=== PATIENT | female | born 1985 | race Caucasian/White ===

== ENCOUNTER 2025-03-04 09:45 | Emergency (ER) | payer MEDICAID, SELFPAY ==
--- NOTE | 2025-03-04 10:32 | XR_ITS ---
Examination: CT abdomen and pelvis without contrast. Coronal 3-D reconstructions. Sagittal 2-D reconstructions. Date and time of exam:March 04, 2025, 12:42 PM INDICATIONS: Right-sided flank pain radiating to lower back with nausea today CTDI: vol (mGy): 8.26 DLP: (mGycm): 418 Technique: Axial images of the abdomen have been obtained, 3 mm slice thickness Intravenous contrast material has not been administered. Low dose protocols were performed. One or more of the following dose reduction techniques were used; automated exposure control, adjustment of the mA and/or KV according to patient size, use of iterative reconstruction technique. Findings: No focal liver or splenic lesion No gallstones No pancreatic or adrenal mass No renal or ureteral calculi, no hydronephrosis Aorta normal size No bowel obstruction Normal appendix No diverticulitis No bladder mass or bladder calculi Anteverted uterus Intact osseous structures IMPRESSION: Hepatomegaly, 21 cm No renal or ureteral calculi, no hydronephrosis Normal appendix No bowel structure diverticulitis or free air. No bladder mass or bladder calculi
--- NOTE | 2025-03-04 10:35 | PD.EDRME ---
Rapid Medical Screening Exam RME Arrival date/time: 03/04/25 09:45 39-year-old female with no known medical history presents to the emergency room with a chief complaint of right-sided flank pain x 2 days I have greeted and performed a focused initial assessment of this patient. A comprehensive ED assessment and evaluation of the patient, analysis of all test results, and completion of the medical decision making process will be conducted by additional ED providers. Chief Complaint: Back Pain/Injury Time Seen by Provider: 03/04/25 10:24 Vital signs reviewed by provider: Yes
[2025-03-04 10:42] VITALS: BP 146/98; PULSE 80; RESP 18; TEMP 36.7; O2SAT 100
[2025-03-04 10:58] LABS: Basophils # (Auto) 0.0 Thou/mm3 (0.0-0.2); Basophils % (Auto) 1 % (0-2.5); Eosinophils # (Auto) 0.2 Thou/mm3 (0.0-0.5); Eosinophils % (Auto) 5 % (0-10); Hematocrit 32.6 % (36.0-46.0); Hemoglobin 9.4 g/dL (12.0-16.0); Immature Granulocytes Auto 0.01 Thou/mm3 (0.00-0.00); Lymphocytes # (Auto) 0.8 Thou/mm3 (1.0-4.8); Lymphocytes % (Auto) 19 % (10-50); Mean Corpuscular HGB Conc 28.8 g/dl (31.0-37.0); Mean Corpuscular Hemoglobin 20.8 pg (25.0-35.0); Mean Corpuscular Volume 72 fL (80-100); Monocytes # (Auto) 0.4 Thou/mm3 (0.0-0.8); Monocytes % (Auto) 9 % (0-12); Neutrophils # (Auto) 2.8 Thou/mm3 (1.8-7.7); Neutrophils % (Auto) 66 % (37-80); Nucleated Red Blood Cell # 0.00 Thou/mm3 (0.00-0.00); Nucleated Red Blood Cell % 0 /100 WBC (0); Platelet Count 266 Thou/mm3 (140-440); RDW Standard Deviation 49.0 fL (36.4-46.3); Red Blood Count 4.51 Miln/mm3 (4.00-5.20); White Blood Count 4.2 Thou/mm3 (3.6-11.0)
[2025-03-04 11:13] LABS: Collection Type, Urine Clean Catch
[2025-03-04 11:28] LABS: Alanine Aminotransferase 11 U/L (10-49); Albumin, Serum 4.7 gm/dL (3.5-5.0); Albumin/Globulin Ratio 2.0 (1.2-2.2); Alkaline Phosphatase 66 U/L (46-116); Anion Gap 10 (7-16); Aspartate Amino Transferase 25 U/L (0-34); BUN/Creatinine Ratio 10 Ratio (12-20); Bilirubin,Total 0.4 mg/dL (0.3-1.2); Blood Urea Nitrogen 8 mg/dL (9-23); Calcium 9.6 mg/dL (8.3-10.6); Calcium (Corrected) 9.6 mg/dL (8.5-10.1); Carbon Dioxide 27.5 mMol/L (20.0-31.0); Chloride 104 mMol/L (98-107); Creatinine (Component) 0.8 mg/dL (0.6-1.3); Globulin 2.4 gm/dL (2.3-3.5); Glucose 113 mg/dL (74-106); Lipase 35 U/L (12-53); Osmolality,Calculated 280 (275-295); Potassium 3.9 mMol/L (3.4-5.1); Sodium 141 mMol/L (136-145); Total Protein 7.1 gm/dL (5.7-8.2); eGFR > 60 See Note
[2025-03-04 11:57] LABS: Bilirubin,Urine Negative (Negative); Blood,Urine 3+ (Negative); Clarity,Urine Turbid (Clear/Hazy); Glucose, Urine Negative (Negative); Ketones,Urine Negative (Negative); Leukocyte Esterase,Urine Positive (Negative); Nitrite,Urine Negative (Negative); PH,Urine 6.5 (5.0-7.0); Protein,Urine Trace (Neg - Trace); RBC,Urine 5229 /hpf (0-3); Specific Gravity,Urine 1.008 (1.001-1.035); Squamous Epithelial Cell,Urine 6 /hpf (0-5); Urobilinogen,Urine Negative mg/dL (0.0-1.0); WBC,Urine 6 /hpf (0-5)
[2025-03-04 11:58] LABS: Color,Urine Lt-Red (Lt Yel-Yel)
[2025-03-04 11:59] LABS: HCG Qualitative,Urine Negative
--- NOTE | 2025-03-04 13:34 | EDNOTE_ITS ---
ED Abdominal Pain RME/HPI General Chief Complaint: Back Pain/Injury Stated complaint: BACK PAIN, 03/08 Time seen by provider: 03/04/25 10:24 Arrival date/time: 03/04/25 09:45 This is a case of 39-year-old female with no medical history came in in the emergency room due to bilateral flank pain radiating to the abdomen associated with nausea vomiting on and off for 2 days patient states that the pain is sharp radiating to the lower back denies any numbness weakness tingling sensation denies any incontinence to urine or stool denies fever or chills persistence of the symptoms this patient decided to sought consult here in the emergency room patient is on her menstrual period today Limitations: no limitations RME / HPI RME / HPI narrative: 03/04/25 09:45 39-year-old female with no known medical history presents to the emergency room with a chief complaint of right-sided flank pain x 2 days I have greeted and performed a focused initial assessment of this patient. A comprehensive ED assessment and evaluation of the patient, analysis of all test results, and completion of the medical decision making process will be conducted by additional ED providers. Related Data Previous Rx's ?Medication ?Instructions ?Recorded doxycycline hyclate 100 mg capsule 100 mg PO BID #14 c aps 02/16/19 hydrocodone 5 mg-acetaminophen 325 1 tab PO Q6H PRN pa in #14 tabs 02/16/19 mg tablet (Ashton) baclofen 10 mg tablet 10 mg PO BID PRN muscle spas m #10 03/04/25 tabs ferrous sulfate 325 mg (65 mg 325 mg PO BID #60 tabs 1 iron) tablet hydrocodone 5 mg-acetaminophen 325 1 tab PO Q6H PRN pa in #12 tabs 03/04/25 mg tablet nitrofurantoin 100 mg PO BID #20 caps 03/04 monohydrate/macrocrystals 100 mg capsule (Macrobid) ondansetron 4 mg disintegrating 4 mg PO Q8H #20 tabs 1 tablet Allergies Allergy/AdvReac Type Severity Reaction Status Date / Time amoxicillin Allergy Unknown Verified 03/04/25 09:48 Penicillins Allergy Unknown Verified 03/04/25 09:48 Review of Systems Review of Systems Systems Reviewed: All systems reviewed, normal except as documented Constitutional Constitutional: Reports system reviewed and no additional complaints, except as documented and Reports as per HPI Cardiovascular Cardiovascular: Reports system reviewed and no additional complaints, except as documented and Reports as per HPI Gastrointestinal Gastrointestinal: Reports system reviewed and no additional complaints, except as documented and Reports as per HPI Genitourinary Genitourinary: Reports system reviewed and no additional complaints, except as documented and Reports as per HPI Musculoskeletal Musculoskeletal: Reports system reviewed and no additional complaints, except as documented and Reports as per HPI Neurologic Neurologic: Reports system reviewed and no additional complaints, except as documented and Reports as per HPI Past Medical History Past Medical History NEUROLOGIC: Negative Neurological Disorders or Seizures CARDIAC: Negative Cardiac Disorders or Congestive Heart Failure RESPIRATORY: Negative Chronic Obstructive Pulmonary Disease (COPD) GASTROINTESTINAL: Positive Gastrointestinal Disorders (PAIN FROM THROAT TO EPIGASTRIC AREA WITH COUGHING UP BLACK SECRETIONS); Negative Hepatitis or Colorectal Cancer GENITOURINARY: Negative Genitourinary Disorders or Renal Disease REPRODUCTIVE: Positive Previous Pregnancies (X2); Negative Breast Cancer or Pelvic Inflammatory Disease MUSCULOSKELETAL: Negative Musculoskeletal Disorders, Bone Cancer or Carpal Tunnel Syndrome ENDOCRINE: Negative Endocrine Disorders, Diabetes Mellitus Type 1 or Diabetes Mellitus Type 2 HEMATOLOGIC: Negative Blood Disorders PSYCHO/SOCIAL: Positive Depression and Anxiety (NO MEDS FOR A YEAR) OTHER HISTORY: Negative Autoimmune Disease, Falls, Blood Transfusions, Blood Transfusion Reaction, Anesthesia Reactions, Organ Transplant, MRSA, Chicken Pox, Breast Cancer, Cervical Cancer, Colorectal Cancer, Lung Cancer or Ovarian Cancer Family History FAMILY HISTORY: Positive Family Cardiac Disorders (HTN-- MOTHER); Negative Family Psychiatric Problems, Family Respiratory Disorders, Family Gastrointestinal Problems, Family Cancer, Family Surgery or Family Anesthesia Reaction Surgical History SURGICAL: Negative Cardiac Surgery, Endocrine Surgery, Ear Surgery, Abdominal Surgery, Joint Replacement, Amputation, Open Reduction Internal Fixation, Arthroscopy, Brain Shunt, Tubal Ligation, Section or Organ Transplant Social History SMOKING STATUS: Former smoker ED Exam General Limitations: Present no limitations General appearance: Present alert, in no apparent distress and other (Patient is awake alert oriented not in distress nontoxic looking well-hydrated well- nourished) Head Head exam: Present atraumatic, normocephalic and normal inspection Eye Eye exam: Present normal appearance, PERRL and EOMI ENT ENT exam: Present normal exam, normal oropharynx and mucous membranes moist Neck Neck exam: Present normal inspection, full ROM and trachea midline; Absent tenderness, meningismus, lymphadenopathy or thyromegaly Chest Chest inspection: Present normal inspection and symmetric chest wall rise; Absent tenderness Respiratory Respiratory exam: Present normal lung sounds bilaterally; Absent respiratory distress, wheezes, stridor, accessory muscle use or prolonged expiratory phase Cardiovascular Cardiovascular exam: Present regular rate, normal rhythm and normal heart sounds; Absent bradycardia, tachycardia, irregular rhythm, systolic murmur, diastolic murmur or clicks Abdominal Exam Abdominal exam: Present soft, tenderness (Mild tenderness on both flank no CVA tenderness) and normal bowel sounds; Absent distention, guarding, rebound, rigidity, diminished bowel sounds, hypoactive bowel sounds, organomegaly, psoas sign, obturator sign, Groves's sign, Rovsing's sign, tenderness at McBurney's Point, ascites or mass Extremities Exam Extremities exam: Present normal inspection and full ROM Back Exam Back exam: Present normal inspection and full ROM Neurological Exam Neurological exam: Present alert, oriented X3, CN II-XII intact and normal gait; Absent motor sensory deficit Psychiatric Psychiatric exam: Present normal affect and normal mood Skin Skin exam: Present warm, dry, intact and normal color Course Quality Measures none Orders Category Date Time Status CT abdomen pelvis wo con Stat Exams 03/04/25 10:32 Completed CBC Stat Lab 03/04/25 10:44 Completed CMP [Comprehensive Metabolic Panel] Stat Lab 03/04/25 10:44 Completed HCG Qualitative,Urine Stat Lab 03/04/25 11:00 Completed Lipase Stat Lab 03/04/25 10:44 Completed UA [Urinalysis] Stat Lab 03/04/25 11:00 Completed Urine Culture Stat Lab 03/04/25 11:00 Received HYDROcodone*/APAP 5/325 [Ashton 5/325] Med 03/04/25 13:27 Discontinued 1 tab PO X1 ONE Ketorolac Inj [Toradol Inj] Med 03/04/25 13:27 Discontinued 30 mg IM X1 ONE Vital Signs Vital signs: Vital Signs Temperature 98.1 F 03/04/25 10:42 Pulse Rate 80 03/04/25 10:42 Respiratory Rate 18 03/04/25 10:42 Blood Pressure 146/98 H 03/04/25 10:42 Pulse Oximetry (%) 100 03/04/25 10:42 Oxygen Delivery Method Room Air 03/04/25 10:42 Oxygen saturation is 100% in room air Abdominal Pain MDM MDM Narrative MDM Narrative:: This is a case of 39-year-old female with no medical history came in in the emergency room due to bilateral flank pain radiating to the abdomen associated with nausea vomiting on and off for 2 days patient states that the pain is sharp radiating to the lower back denies any numbness weakness tingling sensation denies any incontinence to urine or stool denies fever or chills persistence of the symptoms this patient decided to sought consult here in the emergency room p theodora is on her menstrual period today physical examination patient is awake alert oriented not in distress nontoxic looking well-hydrated well-nourished excellent skin turgor no signs and symptoms of sepsis dehydration or acute abdomen abdominal exam is benign nonsurgical no guarding no rebound no rigidity mild tenderness on bilateral flank no CVA tenderness negative psoas negative straight or negative Rovsing's no McBurney's negative Groves sign negative CVA tenderness noted mild tenderness on the lumbar area no crepitation no deformity no redness no swelling leg raise exam is normal steady gait ROM intact neurovascular intact the rest of the physical examination and neurological exam is normal and unremarkable blood test showed no leukocytosis but with anemia hemoglobin of 9.4 no electrolyte imbalance kidney and liver function is normal glucose is normal lipase is normal patient urinalysis showed WBC in the urine and blood in the urine patient have her menstrual period today patient will be treated as urinary tract infection and urine culture was sent to the lab and was discharged with Macrobid patient CT scan were unremarkable only hepatomegaly at this point patient was given Toradol Ashton and Zofran which patient condition markedly improved and resolved he will follow-up with PCP to be referred to tobacco primer machine operator for hepatomegaly and 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 Patient verbalized no further complains explained diagnosis and answered patient question. Patient is comfortable with the proposed management plan including the need to follow up with his/her primary care physician and any specialist if applicable Discussed patient for any urgent condition or worsening sx, He/She needed to go to emergency room immediately or call 911. Patient acknowledge the responsibility to follow up as instructed and to monitor her/his symptoms. For any persistence of the symptoms for more than 3-5 days return precaution advised. Discussed the result of the test and was given printed discharge instruction Patient data External records reviewed:: [facility] previous records Clinical information provided by:: patient Social determinants that could affect healthcare access:: none Patient has the following chronic illnesses:: None How is presenting disease/condition affected by chronic disease/condition?: no chronic disease Evaluation data The following diagnostics were reviewed and interpreted by me:: lab results and radiology exam(s) Lab and/or radiology exams considered but not ordered:: Reviewed Interpretation Summary: Reviewed Medications / Prescriptions Medications or Prescriptions considered but not ordered:: Given Medication administrations:: Medication Administration History Discontinued Medications Hydrocodone Bitart/Acetaminophen (Hydrocodone/Apap 5/325 Tablet) 1 tab PO X1 ONE Stop: 03/04/25 13:28 Ketorolac Tromethamine (Ketorolac Inj 60 Mg/2 Ml Vial) 30 mg IM X1 ONE Stop: 03/04/25 13:28 Given Consultations Consultation(s) initiated? (list below): No Diagnosis Differential diagnosis abdominal pain: abdominal pain, acute appendicitis, calculus of kidney, diverticulitis, gastroenteritis, pancreatitis and small bowel obstruction Most likely diagnosis given after review of the tests above:: Urinary tract infection back muscle spasm Admission Indicated Admission indicated?: not indicated Explain why admission is indicated or not indicated:: Not indicated Admission Request Was there a request for admission?: No Admission Attestation Admission request attestation: Not indicated Disposition Plan Disposition Plan: Discharge Discharge Attestation Discharge Attestation: The patient and all family members were given an opportunity to ask questions and understood the discharge instructions. Discharge instructions specifically effects, indications for sooner follow up or return to the emergency department, and the expected course of current diagnosis. Patient condition: Stable Discharge Plan Plan Patient Disposition: HOME (Self Care) Patient condition on transfer: Stable Prescriptions/Referrals Prescriptions/Med Rec: New hydrocodone-acetaminophen 5-325 mg tablet 1 tab PO Q6H MDD max 4 tabs per day PRN (Reason: pain) Qty: 12 0RF baclofen 10 mg tablet 10 mg PO BID PRN (Reason: muscle spasm) Qty: 10 0RF ondansetron 4 mg tablet,disintegrating 4 mg PO Q8H Qty: 20 0RF nitrofurantoin monohyd/m-cryst [Macrobid] 100 mg capsule 100 mg PO BID Qty: 20 0RF Rx Instructions: must administer with a meal/food ferrous sulfate 325 mg (65 mg iron) tablet 325 mg PO BID Qty: 60 0RF No Action hydrocodone-acetaminophen [Ashton] 5-325 mg tablet 1 tab PO Q6H MDD 6 tabs PRN (Reason: pain) Qty: 14 0RF doxycycline hyclate 100 mg capsule 100 mg PO BID Qty: 14 0RF Problem List Clinical Impression: Flank pain, Back muscle spasm, Urinary tract infection, Hepatomegaly, Anemia Patient/Caregiver Discharge Instructions Education Materials: Tests for Liver Disease, Anemia, Urinary Tract Infections in Women, ED Back Spasm, No Trauma, ED Pain, Acute, Uncertain Cause Additional Instructions: Follow-up with your primary care physician in 2 days for reevaluation and to be referred to tobacco primer machine operator for further evaluation and treatment of hepatomegaly and counter clerk for your anemia recurrence persistent worsening symptoms or any emergent concern call 911 or go to the nearest emergency room take your medication as directed finish the course of antibiotic increase water intake Pedialyte Gatorade for hydration ice pack and warm compress as needed for pain Print Language: [place]ralt[place] Stand Alone Forms: Monica Award Info., Patient Portal Info Letter PA/BUSINESS PROCESS REPRESENTATIVE Supervising Physician PA/BUSINESS PROCESS REPRESENTATIVE Supervising Physician: Dr. TENORIO
[2025-03-04] MEDS: HYDROcodone/APAP 5/325 TABLET 1 TAB PO (13:42)
[2025-03-04] MEDS: KETOROLAC INJ 60 MG/2 ML VIAL 30 MG IM (13:42)
== END 2025-03-06 20:22 | disposition home or self-care (01) ==
LOC: SERX 14:13
PROVIDERS: Nurse Practitioner Family; Emergency Provider Emergency Medicine
DX: N39.0 Urinary tract infection, site not specified (principal); D64.9 Anemia, unspecified; M62.830 Muscle spasm of back; R16.0 Hepatomegaly, not elsewhere classified; R10.A3 Flank pain, bilateral; M54.50 Low back pain, unspecified
CPT/HCPCS: 36415; 74176; 80053; 81001; 81025; 83690; 85025; 87086; 96372; 99284; J1885; A9270